=== PATIENT | male | born 1980 | race Hispanic/Latino ===

== ENCOUNTER 2018-11-25 20:33 | Inpatient (IN) | payer OTHER, SELFPAY ==
[~2018-11-25] VITALS: Ht 165.1 cm; Wt 93.6 kg
[2018-11-25 21:52] VITALS: BP 124/87
[2018-11-25 21:53] LABS: BASOPHIL % 0.1 % (0.0-0.2); EOSINOPHIL # 0.1 10^3/uL (0.0-0.2); EOSINOPHIL % 0.6 % (0.0-5.0); HEMOGLOBIN 15.4 g/dL (13.9-16.3); LYMPHOCYTES # 1.2 10^3/uL (1.0-4.8); LYMPHOCYTES % 9.8 % (24.0-44.0); MEAN CELL HGB 29.3 pg (26-34); MEAN CELL HGB CONCENTRATION 34.7 g/dL (33-37); MEAN CORP VOLUME 84.6 fL (78-100); MEAN PLATELET VOLUME 9.9 fL (7.8-11.0); MONOCYTES # 0.6 10^3/uL (0.3-0.8); MONOCYTES % 4.8 % (5.0-12.0); NEUTROPHIL # 10.6 10^3/uL (1.8-7.7); NEUTROPHILS % 84.5 % (41.0-85.0); RED CELL DISTRIBUTION WIDTH 13.1 % (11.5-14.5); WHITE BLOOD CELL 12.5 10^3/uL (4.5-11.0)
[2018-11-25 21:57] LABS: BILIRUBIN,URINE NEGATIVE (NEGATIVE); UROBILINOGEN,URINE NORMAL (NEGATIVE)
[2018-11-25 22:00] LABS: APPEARANCE,URINE CLEAR (CLEAR); UA COLOR YELLOW (YELLOW)
--- NOTE | 2018-11-25 22:02 | ER.PDOC ---
General Chief Complaint: Abdomen Pain Stated Complaint: ABD PAIN/VOMITING Time seen by MD: 21:57 Source: family (translating ) Exam Limitations: no limitations History of Present Illness Initial Comments diffuse abd pain, pt was seen at the clinic yesterday and started on bactrim for Sore throat , pt states he started taking the meds yesterday and its not working. pt also c/o Constipation and has not had a BM 2 days ago , no fever noted Timing/Duration: 4-6 hours, intermittent Radiation: no radiation Associated Symptoms: nausea/vomiting Exacerbated by: nothing Relieved By: nothing Allergies: Coded Allergies: No Known Allergies (Unverified , 11/25/18) Home Meds No Active Prescriptions or Reported Meds Vital Signs First Vital Signs Date Time Temp Pulse Resp B/P (MAP) Pulse Ox O2 Delivery O2 Flow Rate FiO2 11/25/18 20:52 98.6 87 16 96 Room Air 98.6 Last Vital Signs Date Time Temp Pulse Resp B/P (MAP) Pulse Ox O2 Delivery O2 Flow Rate FiO2 11/25/18 20:52 98.6 98.6 11/25/18 20:52 87 16 11/25/18 20:52 96 Room Air Past Medical History Medical History: no pertinent history Family History Significant Family History: no pertinent family hx Social History Smoking: non-smoker Alcohol Use: occassionally Drug Use: none Constitutional: no symptoms reported EENTM: no symptoms reported Respiratory: no symptoms reported Cardiovascular: no symptoms reported Gastrointestinal: abdominal pain, nausea, vomiting Genitourinary: no symptoms reported Musculoskeletal: no symptoms reported Skin: no symptoms reported Psychiatric/Neurological: no symptoms reported Endocrine: no symptoms reported Hematologic/Lymphatic: no symptoms reported Physical Exam General Appearance: No Apparent Distress, WD/WN HEENT: PERRL/EOMI, Normal ENT Inspection Neck: Non-Tender, Full Range of Motion, Supple Respiratory: chest non-tender, lungs clear, normal breath sounds, no respi ratory distress, no accessory muscle use Cardiovascular: Normal Peripheral Pulses, Regular Rate, Rhythm, No Edema Gastrointestinal: No Organomegaly, Hypoactive bowel sounds, Tenderness (epigastrium , no rebound no guarding noted ) Back: Normal Inspection Extremities: Normal Range of Motion, Non-Tender, Normal Inspection, No Pedal Edema 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 (11/25/18 21:41) Urinalysis (11/25/18 21:41) Xr Abd 2v (11/25/18 21:41) Urine Culture (11/25/18 20:44) Ct Abd/Pel With Iv Contrast (11/25/18 22:21) 0.9 % Sodium Chloride (Ns 1000ml) (11/25/18 22:30) 0.9 % Sodium Chloride (Ns 1000ml) (11/25/18 22:30) Ondansetron Hcl (Zofran) (11/25/18 23:10) 0.9 % Sodium Chloride (Ns 1000ml) (11/26/18 02:00) Routine Vital Signs (11/26/18 01:45) Npo-Dietary Req Nothing By Mo. (11/26/18 Breakfast) Intake & Output (11/26/18 01:45) Up Ad Liya/Low Risk Vte (11/26/18 01:45) Cbc With Auto Diff (11/27/18 05:00) Comprehensive Metabolic Panel (11/27/18 05:00) Ondansetron Hcl (Zofran) (11/26/18 02:00) Bedrest With Brp (11/26/18 01:45) Admit Orders (11/26/18 01:45) Vital Signs Date Time Temp Pulse Resp B/P (MAP) Pulse Ox O2 Delivery O2 Flow Rate FiO2 11/25/18 20:52 98.6 98.6 11/25/18 20:52 98.6 87 16 98.6 11/25/18 20:52 98.6 87 16 96 Room Air 98.6 Administered Medications Medications (Trade) Dose Ordered Sig/Mirian Route PRN Reason Start Time Stop Time Status Last Admin Dose Admin Sodium Chloride 1,000 ml @ 1,200 mls/hr Q50M STAT IV 11/25/18 22:30 11/25/18 23:19 DC 11/25/18 22:34 1,200 MLS/HR Laboratory Tests Test 11/25/18 20:44 11/25/18 21:48 Urine Collection Type VOID Urine Color YELLOW (YELLOW) Urine Appearance CLEAR (CLEAR) Urine Bilirubin NEGATIVE MG/DL (NEGATIVE) Urine Ketones NEGATIVE (NEGATIVE) Urine Specific [place] 1.015 (1.005-1.035) Urine pH 5 (5.0-6.0) Urine Protein 15 mg/dL (NEGATIVE) H Urine Urobilinogen NORMAL (NEGATIVE) Urine Nitrate NEGATIVE (NEGATAIVE) Urine Leukocyte Esterase NEGATIVE (NEGATIVE) Urine Blood 10 TR (NEGATIVE) H Urine RBC 0-2 RBC/HPF (NONE SEEN) Urine WBC 5-10 WBC/HPF (0-2) H Urine Squamous Epithelial Cells FEW #/HPF (FEW) Urine Bacteria RARE (NONE SEEN) Urine Hyaline Casts 0-1 (NONE SEEN) Urine Other FEW MUCUS #/HPF Urine Glucose NORMAL (NEGATIVE) White Blood Count 12.5 10^3/uL (4.5-11.0) H Red Blood Count 5.25 10^6/uL (4.50-5.90) Hemoglobin 15.4 g/dL (13.9-16.3) Hematocrit 44.4 % (37.0-53.0) Mean Corpuscular Volume 84.6 fL (78-100) Mean Corpuscular Hemoglobin 29.3 pg (26-34) Mean Corpuscular Hemoglobin Concent 34.7 g/dL (33-37) Red Cell Distribution Width 13.1 % (11.5-14.5) Platelet Count 316 10^3/uL (150-400) Mean Platelet Volume 9.9 fL (7.8-11.0) Neutrophils (%) (Auto) 84.5 % (41.0-85.0) Lymphocytes (%) (Auto) 9.8 % (24.0-44.0) L Monocytes (%) (Auto) 4.8 % (5.0-12.0) L Neutrophils # (Auto) 10.6 10^3/uL (1.8-7.7) H Lymphocytes # (Auto) 1.2 10^3/uL (1.0-4.8) Monocytes # (Auto) 0.6 10^3/uL (0.3-0.8) Absolute Immature Granulocyte (auto 0.03 10^3 u/L (0-2) Immature Granulocytes % 0.20 % (0.00-0.50) Eosinophils % 0.6 % (0.0-5.0) Basophils % 0.1 % (0.0-0.2) Basophils # 0.0 10^3/uL (0.0-0.1) Eosinophil Count 0.1 10^3/uL (0.0-0.2) Prothrombin Time 9.6 SEC (9.8-11.9) L Prothrombin Time INR (Non-Therap) 1.0 PTT 23.2 SEC (24.67-30.72) Sodium Level 140 mmol/L (132-145) Potassium Level 4.3 mmol/L (3.6-5.2) Chloride Level 100.0 mmol/L (96-109) Carbon Dioxide Level 26.0 mmol/L (20.0-32) Anion Gap 18.3 Blood Urea Nitrogen 13 mg/dL (7-18) Creatinine 1.22 mg/dL (0.59-1.40) Estimated GFR () 79.6 (>/=60) BUN/Creatinine Ratio 10.0 Glucose Level 138 mg/dL (70-110) H Calcium Level 9.9 mg/dL (8.4-10.5) Total Bilirubin 0.8 mg/dL (0.2-1.0) Aspartate Amino Transferase (AST) 47 U/L (0-35) H Alanine Aminotransferase (ALT) 84 U/L (12-78) H Alkaline Phosphatase 91 U/L (50-136) Total Protein 8.9 g/dL (6.4-8.2) H Albumin 4.4 g/dL (3.4-5.0) Globulin 4.5 Amylase Level 46 U/L (25-115) Lipase 126 U/L (114-286) Helicobacter pylori Screen NEGATIVE (NEGATIVE) Course Vitals & review Data Vital Sign - Last 24 Hours 11/25/18 11/25/18 11/25/18 20:52 20:52 20:52 Temp 98.6 98.6 98.6 98.6 98.6 98.6 Pulse 87 87 Resp 16 16 Pulse Ox 96 O2 Delivery Room Air Intake and Output 11/25/18 11/25/18 11/26/18 14:59 22:59 06:59 Output Total 150 ml Balance -150 ml Laboratory Tests Test 11/25/18 20:44 11/25/18 21:48 Urine Collection Type VOID Urine Color YELLOW Urine Appearance CLEAR Urine Bilirubin NEGATIVE MG/DL Urine Ketones NEGATIVE Urine Specific [place] 1.015 Urine pH 5 Urine Protein 15 mg/dL Urine Urobilinogen NORMAL Urine Nitrate NEGATIVE Urine Leukocyte Esterase NEGATIVE Urine Blood 10 TR Urine RBC 0-2 RBC/HPF Urine WBC 5-10 WBC/HPF Urine Squamous Epithelial Cells FEW #/HPF Urine Bacteria RARE Urine Hyaline Casts 0-1 Urine Other FEW MUCUS #/HPF Urine Glucose NORMAL White Blood Count 12.5 10^3/uL Red Blood Count 5.25 10^6/uL Hemoglobin 15.4 g/dL Hematocrit 44.4 % Mean Corpuscular Volume 84.6 fL Mean Corpuscular Hemoglobin 29.3 pg Mean Corpuscular Hemoglobin Concent 34.7 g/dL Red Cell Distribution Width 13.1 % Platelet Count 316 10^3/uL Mean Platelet Volume 9.9 fL Neutrophils (%) (Auto) 84.5 % Lymphocytes (%) (Auto) 9.8 % Monocytes (%) (Auto) 4.8 % Neutrophils # (Auto) 10.6 10^3/uL Lymphocytes # (Auto) 1.2 10^3/uL Monocytes # (Auto) 0.6 10^3/uL Absolute Immature Granulocyte (auto 0.03 10^3 u/L Immature Granulocytes % 0.20 % Eosinophils % 0.6 % Basophils % 0.1 % Basophils # 0.0 10^3/uL Eosinophil Count 0.1 10^3/uL Prothrombin Time 9.6 SEC Prothrombin Time INR (Non-Therap) 1.0 Activated Partial Thromboplast Time 23.2 SEC Sodium Level 140 mmol/L Potassium Level 4.3 mmol/L Chloride Level 100.0 mmol/L Carbon Dioxide Level 26.0 mmol/L Anion Gap 18.3 Blood Urea Nitrogen 13 mg/dL Creatinine 1.22 mg/dL Estimated GFR () 79.6 BUN/Creatinine Ratio 10.0 Glucose Level 138 mg/dL Calcium Level 9.9 mg/dL Total Bilirubin 0.8 mg/dL Aspartate Amino Transf (AST/SGOT) 47 U/L Alanine Aminotransferase (ALT/SGPT) 84 U/L Alkaline Phosphatase 91 U/L Total Protein 8.9 g/dL Albumin 4.4 g/dL Globulin 4.5 Amylase Level 46 U/L Lipase 126 U/L Helicobacter pylori Screen NEGATIVE Sepsis Infection Criteria Pres: None O2 Sat by Pulse Oximetry: 96 Departure Time of Disposition: 01:50 Disposition: 09 ADMITTED INPATIENT Impression: Primary Impression: Small bowel obstruction Condition: Stable Referrals: PCP,UNKNOWN (PCP) PRIMARY CARE PROVIDER Scripts No Active Prescriptions or Reported Meds Duration or Time Spent with Pa: 30 minutes BO LONDON MD Nov 25, 2018 22:02
--- NOTE | 2018-11-25 22:07 | DIREP ---
PROCEDURE:XR ABDOMEN 2 VIEWS COMPARISON:None. INDICATIONS:abd pain TECHNIQUE:Flat and upright views of the abdomen are provided. FINDINGS: BOWEL GAS PATTERN:Loops of air filled mildly dilated small bowel in the upper abdomen with differential air-fluid levels. Moderate amount of stool in the proximal ascending colon. Paucity of air in the distal colon and rectum. CALCIFICATIONS:None significant. LUNG BASES:Clear. BONES:Normal. OTHER:No additional findings. CONCLUSION:Findings consistent with to early/incomplete small obstruction, ileus or gastroenteritis. Dictated by: Grace Cole MD on 11/25/2018 at 10:04 PM
[2018-11-25 22:09] LABS: CALCIUM 9.9 mg/dL (8.4-10.5)
[2018-11-25] MEDS ORDERED: NS 1000ML 1,000 ML ONE (22:30)
[2018-11-25] MEDS ORDERED: NS 1000ML 1,000 ML IV STA (22:30)
[2018-11-25 22:52] VITALS: BP 131/85
[2018-11-25] MEDS ORDERED: ZOFRAN ONE (23:10)
[2018-11-25 23:52] VITALS: BP 145/65
[2018-11-26 00:50] VITALS: BP 135/82
--- NOTE | 2018-11-26 01:06 | DIREP ---
PROCEDURE:CT ABDOMEN/PELVIS W/ CONTRAST COMPARISON:[facility], CR, XRAY ABDOMEN 2VW, 11/25/2018, 09:26 PM. INDICATIONS:abd pain, eval for SBO TECHNIQUE:Axial images were created through the abdomen and pelvis with non-ionic intravenous contrast material. Oral contrast was administered however the patient immediately vomited the contrast. Sagittal and coronal reconstructions were performed from source images. FINDINGS: LUNG BASES:Normal. No visible pulmonary or pleural disease. LIVER:Hypodense parenchyma suggesting steatosis, Recalled density with the adjacent gallbladder bile BILIARY:Gallbladder contracted, no gallstones detected PANCREAS:Normal. No lesion, fluid collection, ductal dilatation, or atrophy. SPLEEN:Normal. No enlargement or focal lesion. ADRENALS:Normal. No mass or enlargement. URINARY TRACT:Normal. No focal lesions or hydronephrosis. AORTA/VASCULAR:Normal. No aneurysm. RETROPERITONEUM:Normal. No mass or adenopathy. BOWEL/MESENTERY:Dilated fluid-filled small bowel, some loops proximally exceeding 4 cm. No free fluid in the mesentery. There is fecalization of the small bowel contents in the right flank and a transition to normal caliber right flank, ventral to the right kidney, series 2/image 42 and series 53591/image 37. A lead point or mass is not demonstrated . The colon is unremarkable. The vermiform appendix, redundant, is identified in the right lower quadrant series 2/image 60. The stomach is distended and fluid-filled. ABDOMINAL WALL:Normal. No mass or hernia. PELVIC ORGANS:Normal. No visible mass. Pelvic organs appropriate for patient age. BONES:Normal for age. No bony lesion or acute fracture. OTHER:Negative. CONCLUSION:Dilated fluid-filled small bowel with transition zone consistent with small bowel obstruction. Normal appendix. Dictated by: Eze Huang MD on 11/26/2018 at 00:57 AM
[2018-11-26 01:50] VITALS: BP 124/90
[2018-11-26] MEDS ORDERED: ZOFRAN IV PRN (02:00)
[2018-11-26] MEDS ORDERED: NS 1000ML 1,000 ML IV ONE (02:00)
[2018-11-26] MEDS ORDERED: NS 1000ML 1,000 ML ONE (02:02)
--- NOTE | 2018-11-26 02:15 | NUR ---
NG TUBE OUTPUT 1800ML OUT TOTAL UPON LEAVING ED
--- NOTE | 2018-11-26 02:33 | DIREP ---
PROCEDURE:CHEST 1 VIEW COMPARISON:[facility], CT, CT ABD/PELVIS W/ CONTRAST, 11/26/2018, 00:22 AM. INDICATIONS:NG TUBE PLACEMENT FINDINGS: LUNGS/PLEURA:No consolidation. No pneumothorax. Incomplete inspiration VASCULATURE:Normal. Unremarkable pulmonary vasculature. CARDIAC:Normal. No cardiac silhouette abnormality or cardiomegaly. MEDIASTINUM:NG tube tip in the left upper quadrant, gastric bubble BONES:Normal. No fracture or visible bony lesion. OTHER:Negative. CONCLUSION:NG tube in the left upper quadrant of the abdomen Dictated by: Eze Huang MD on 11/26/2018 at 02:30 AM
[2018-11-26] MEDS ORDERED: LACTATED RINGERS 1,000 ML ONE ×2 (03:00)
[2018-11-26] MEDS ORDERED: LACTATED RINGERS 1,000 ML IV ONE (03:30)
[2018-11-26 03:42] VITALS: BP 128/81
[2018-11-26] MEDS ORDERED: LACTATED RINGERS 1,000 ML IV SCH (04:30)
[2018-11-26] MEDS ORDERED: MORPHINE SULFATE IV PRN (05:00)
[2018-11-26 05:26] LABS: HEMOGLOBIN 14.7 g/dL (13.9-16.3); MEAN CELL HGB 29.7 pg (26-34); MEAN CELL HGB CONCENTRATION 34.7 g/dL (33-37); MEAN CORP VOLUME 85.7 fL (78-100); MEAN PLATELET VOLUME 9.7 fL (7.8-11.0); RED CELL DISTRIBUTION WIDTH 13.2 % (11.5-14.5); WHITE BLOOD CELL 10.6 10^3/uL (4.5-11.0)
[2018-11-26 05:59] LABS: CALCIUM 9.4 mg/dL (8.4-10.5); CARBON DIOXIDE 27.3 mmol/L (20.0-32)
[2018-11-26 07:21] VITALS: BP 123/77
--- NOTE | 2018-11-26 08:00 | NUR ---
scd's placed bilateral calf scds on patient.
[2018-11-26] MEDS: NS 1000ML 1,000 ML IV SCH ×3 (08:05→23:18)
[2018-11-26] MEDS: PROTONIX IV IV SCH ×2 (08:49→21:28)
[2018-11-26] MEDS ORDERED: NEXIUM I.V. IV SCH (09:00)
--- NOTE | 2018-11-26 10:55 | NUR ---
ambulation patient ambulating in room. passed small amount of flatus. urge to use restroom but no bm. states he feels better.
--- NOTE | 2018-11-26 11:53 | NUR ---
ambulation patient ambulating in [place].
[2018-11-26 14:04] VITALS: BP 123/71
[2018-11-26] MEDS ORDERED: DULCOLAX EC TABLET PO STA (15:35)
--- NOTE | 2018-11-26 15:40 | NUR ---
BM patient had small mucousy bowel movement
[2018-11-26] MEDS ORDERED: ROCEPHIN ONE (15:48)
[2018-11-26] MEDS ORDERED: NS 100ML 100 ML IV ONE (15:49)
[2018-11-26] MEDS: ROCEPHIN 1,000 MG in NS 100ML 100 ML IV SCH (15:55)
--- NOTE | 2018-11-26 16:02 | HPH ---
ADMIT DATE: 11/26/2018 CHIEF COMPLAINT: Abdominal pain. HISTORY OF PRESENT ILLNESS: This is a 38-year-old male with no significant past medical history who presents to the Emergency Department with complaints of abdominal pain. He states this has been going on for the last 2-3 days with generalized abdominal pain, worse in the mid upper part of the abdomen with mild radiation to the left side of the abdomen. He has had nausea, but denies any vomiting. He also notes that he has been more constipated over the last 3 days and this is not something that he normally has a problem with. He denies any fever or other constitutional symptoms. He went to a small clinic in [place] prior to coming to the Emergency Department and states he was given some type of medication to take which did not give any improvement. Over the course of the evening, he started to have nausea with one episode of vomiting and his pain was continuing to worsen with abdominal distention. He then proceeded to the Emergency Department at that time. He does state that this happened to him one other time several years ago. He does not remember how it was treated, but he did not have to have any procedures. He denies ever having any abdominal or pelvic surgeries. PAST MEDICAL HISTORY: 1. Low back pain. 2. GERD. MEDICATIONS: None. ALLERGIES: No known drug allergies. PAST SURGICAL HISTORY: Denies. SOCIAL HISTORY: Alcohol -- social. Tobacco -- none. Recreational drugs -- none. The patient works at a Plant. FAMILY HISTORY: Denies any significant medical problems with family other than high blood pressure. REVIEW OF SYSTEMS: GENERAL: Positive for recent weakness and malaise over the last several days. No fever. CARDIAC: Denies chest pain, orthopnea, PND or palpitation. RESPIRATORY: Denies shortness of breath, cough or congestion. GASTROINTESTINAL: Positive for abdominal pain and nausea, vomiting. Positive constipation. No history of hepatitis. GENITOURINARY: Denies dysuria, frequency, hematuria or nocturia. HEMATOLOGIC: No easy bleeding or bruising. ENDOCRINE: No recent weight loss or weight gain. No temperature intolerance. NEUROLOGIC: Denies headache, paresthesias or dizziness. MUSCULOSKELETAL: No complaints of bones, muscles or joints. DERMATOLOGIC: No complaints of wounds, rashes or skin lesions. PSYCHIATRIC: Denies depression or anxiety complaints. OBJECTIVE: VITAL SIGNS: Temperature is 98.6, pulse 87, respirations 16, blood pressure 124/87. GENERAL: This is a well-appearing male in no acute distress. HEENT: Atraumatic, normocephalic. Sclerae are clear and anicteric. Oral mucosa is dry. NECK: Soft, supple, normal range of motion. No bruits, goiter, mass or adenopathy. There is no JVD. LUNGS: Clear to auscultation bilaterally. HEART: Regular rate and rhythm without murmurs, S3 or S4. ABDOMEN: Soft, distended, mild diffuse tenderness, worse in the left upper quadrant and left side of abdomen. Hypoactive bowel sounds. No masses felt. EXTREMITIES: Warm and well perfused without evidence of edema, cyanosis or clubbing. NEUROLOGIC: Cranial nerves 2-12 are grossly intact and symmetric. SKIN: Intact. LABORATORY DATA: WBC 12.5, hemoglobin 15.4, hematocrit 44.4, and platelets 316. Sodium 140, potassium 4.3, chloride 100, CO2 of 26, BUN 13, creatinine 1.22. Glucose 138. A1c 6.5. AST 47, ALT 84, total protein 8.9. Urinalysis -- 5-10 wbc's, rare bacteria. H. pylori screen -- negative. Abdominal x-ray -- "findings consistent with early/incomplete small obstruction, ileus or gastroenteritis." Chest x-ray - "NG tube in the left upper quadrant of the abdomen." CT abdomen and pelvis - "dilated fluid filled small bowel with transition zone consistent with small-bowel obstruction." ASSESSMENT: 1. Generalized abdominal pain. 2. Nausea, vomiting. 3. Partial small-bowel obstruction versus ileus. 4. Diabetes mellitus type 2 with hyperglycemia -- new diagnosis. 5. Gastroesophageal reflux disease. PLAN: 1. The patient is admitted to [facility] for further evaluation and management. 2. NG tube in place to low intermittent wall suction. 3. Consult Dr. Osvaldo Gupta for surgical evaluation. 4. Keep the patient n.p.o. with aggressive IV fluid resuscitation. 5. Start Accu-Cheks before meals and at bedtime with moderate sliding scale. 6. Increase activity. 7. Start proton pump inhibitor. 8. DVT prophylaxis. 9. Consider gastric emptying study as outpatient. Jatinder Wilder MD DR: SAJI/shelby JOB# [id number]
--- NOTE | 2018-11-26 19:00 | NUR ---
report received report from charge nurse
[2018-11-26 20:07] VITALS: BP 137/92
[2018-11-27 00:01] VITALS: BP 124/83
--- NOTE | 2018-11-27 02:01 | NUR ---
gastrografin administered
--- NOTE | 2018-11-27 02:11 | NUR ---
ambulating pt is ambulating in the hallway at this time.
[2018-11-27 04:39] VITALS: BP 133/90
[2018-11-27 05:35] LABS: BASOPHIL % 0.1 % (0.0-0.2); EOSINOPHIL # 0.1 10^3/uL (0.0-0.2); LYMPHOCYTES # 1.5 10^3/uL (1.0-4.8); LYMPHOCYTES % 14.8 % (24.0-44.0); MEAN CELL HGB 29.8 pg (26-34); MEAN CELL HGB CONCENTRATION 34.3 g/dL (33-37); MEAN CORP VOLUME 86.8 fL (78-100); MEAN PLATELET VOLUME 10.2 fL (7.8-11.0); MONOCYTES # 0.7 10^3/uL (0.3-0.8); NEUTROPHIL # 7.9 10^3/uL (1.8-7.7); NEUTROPHILS % 76.9 % (41.0-85.0); RED CELL DISTRIBUTION WIDTH 13.1 % (11.5-14.5); WHITE BLOOD CELL 10.3 10^3/uL (4.5-11.0)
[2018-11-27] MEDS: NS 1000ML 1,000 ML IV SCH ×2 (06:15→15:00)
--- NOTE | 2018-11-27 06:46 | NUR ---
REPORT RECEIVED REPORT, ASSUMED CARE FOR PATIENT AT THIS TIME.
[2018-11-27 06:55] LABS: CALCIUM 8.7 mg/dL (8.4-10.5); CARBON DIOXIDE 24.1 mmol/L (20.0-32)
--- NOTE | 2018-11-27 07:05 | NUR ---
RECEIVED ORDERS TO ADVANCE NG TUBE 3CM AT THIS TIME. AUSCULTATED FOR PATENCY, AND CONNECTED TO LOW INTERMITTENT SUCTION PER DOCTORS ORDERS.
--- NOTE | 2018-11-27 07:11 | DIREP ---
PROCEDURE:XR ABDOMEN 2 VIEWS COMPARISON:[facility], CR, XRAY ABDOMEN 2VW, 11/25/2018, 09:26 PM. INDICATIONS:Ileus TECHNIQUE:Flat and upright views of the abdomen are provided. FINDINGS: BOWEL GAS PATTERN:Multiple loops of air-filled mildly dilated organized small bowel in the abdomen. Paucity of air in the colon. Tip of NGT lies in the gastric fundus with the side hole at the esophagogastric junction and should be advanced. CALCIFICATIONS:None significant. LUNG BASES:Clear. BONES:Mild degenerative changes. OTHER:No additional findings. CONCLUSION: 1. Findings consistent with small-bowel obstruction. No perforation. 2. Advancement of NGT recommended. Dictated by: Grace Cole MD on 11/27/2018 at 07:06 AM
[2018-11-27 07:25] VITALS: BP 123/84
[2018-11-27] MEDS: PROTONIX IV IV SCH ×2 (08:45→21:50)
--- NOTE | 2018-11-27 09:28 | NUR ---
NG TUBE CLAMPED AT THIS TIME. PATIENT AMBULATING IN HALLWAY INDEPENDENTLY.
--- NOTE | 2018-11-27 09:52 | NUR ---
PATIENT CONNECTED TO LOW INTERMITTENT SUCTION AT THIS TIME.
--- NOTE | 2018-11-27 10:30 | NUR ---
DISCHARGE PLAN CM VISITED WITH PATIENT REGARDING D/C PLAN. HE LIVES AT HOME WITH HIS SPOUSE IN [place] AND IS INDEPENDENT OF ADLS. HE DOES NOT USE DME IN THE HOME AND DENIES THE NEED FOR ANY DME IN THE HOME. HE IS EMPLOYED F/T BY THE [employer]MENT IN [place]. HE DOES NOT HAVE A PCP AND A PROVIDER LIST WAS GIVEN FOR MAZIN. HE SAID HE IS FINANCIALLY ABLE TO PAY FOR MEDICATIONS. DISCHARGE GOAL IS FOR PATIENT TO DISCHARGE BACK HOME WITH HIS SPOUSE AND CONTINUE ROUTINE CARE THERE. CM WILL FOLLOW PT UNTIL DISCHARGE.
[2018-11-27 11:06] VITALS: BP 129/78
--- NOTE | 2018-11-27 11:39 | CNH ---
DATE OF CONSULTATION: Translation for this consultation provided by the language line service [employer] , ID number is [id number] CHIEF COMPLAINT: Small-bowel obstruction. HISTORY OF PRESENT ILLNESS: This is a 38-year-old male who apparently had 3 days of abdominal pain. He was in the fair amount of pain at home. He had multiple episodes of nausea and vomiting. He presented to the Emergency Department [facility], had labs and a CT scan that showed changes consistent with a bowel obstruction. NG tube was placed. He has been sent to the floor and has IV fluid hydration going. At the time of my repeat assessment today, he is noted to have abdominal pain 1-2, it is remarkably improved. He feels like his bowels are starting to rumble and he has no nausea with the NG tube in place. PAST MEDICAL HISTORY: Denies. PAST SURGICAL HISTORY: Includes skin grafts on the back. ALLERGIES: No known drug allergies. HOME MEDICATIONS: None. SOCIAL HISTORY: Negative for tobacco, it is positive for rare alcohol consumption, negative for illicit drug use. 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 FAMILY HISTORY: Mother at age 77 from some unknown cancer. Father is living at age 78, essentially healthy per patient report. REVIEW OF SYSTEMS: GENERAL: Positive for some seasonal allergies and cough. ENDOCRINE: He denies thyroid disease or diabetes. CARDIOVASCULAR: No chest pain or trouble breathing. PULMONARY: He denies any dyspnea at this time. MUSCULOSKELETAL: He héctor significant pain, stiffness, or swelling associated with joints or bones. He does have some muscular pain in the right lower leg. NEUROLOGIC: He denies any previous seizure or blackouts. PHYSICAL EXAMINATION: GENERAL: This is an alert, oriented, appropriate 38-year-old male who is in no acute distress. He is seen on multiple occasions. VITAL SIGNS: Last temperature is 98.3, pulse 72, respiratory rate 14, blood pressure 123/71. HEENT: Normocephalic, atraumatic. There was an NG tube in place. NECK: Supple and soft. Trachea is midline. No JVD or thyromegaly. HEART: Has regular rate and rhythm. LUNGS: Clear bilaterally. ABDOMEN: The bowel sounds are positive and they are increased this afternoon and over this a.m. He has minimal tenderness in the right side in the mid abdomen. EXTREMITIES: Show positive radial pulse bilaterally. Positive dorsal pedal pulse bilaterally. NEUROLOGIC: He has no acute findings. Cranial nerves 2-12 are grossly intact. SKIN AND INTEGUMENT: Warm and dry. LABORATORY STUDIES: After IV fluid hydration and NG tube decompression today, his white count is 10.6, hemoglobin 14.7, and platelet count is 293. Chemistry today shows BUN of 12, creatinine of 1.05. His hemoglobin A1c is 6.5. His transaminase levels are still elevated, but they are improved. TSH is 1.49. He has had an abdominal x-ray and a CT that shows changes consistent with partial versus complete small-bowel obstruction. He is noted to have some fecalization of small bowel contents on the CT scan. ASSESSMENT: 1. Partial versus complete small-bowel obstruction versus ileus. 2. Clinical dehydration. 3. Hyperglycemia. PLAN: 1. The patient is seen and examined. Chart is reviewed. 2. On discussion with the patient, it turns out that he has recently had a pharyngeal infection for which he is on p.o. meds , his has the meds, he is not sure what they are. 3. Based on the recent illness and the potential for this being dehydration related illness, we will continue conservative management with NG tube decompression and IV fluids. The patient has apparently had a bowel movement today. We will give him some Dulcolax for gentle catharsis, order Gastrografin through his NG tube tonight and plan for an x-ray in the morning. If, however, the contrast appears impeded in the small bowel at the area of fecalization, it is more likely that he does have an obstruction, he may require operative intervention. If it proves to pass, this will likely resolve nonoperatively. Osvaldo Gupta DO DR: DEBBIE/shelby JOB# [id number] CC: Jatinder Wilder MD MTDD
--- NOTE | 2018-11-27 11:45 | NUR ---
NG TUBE CLAMPED AT THIS TIME.
--- NOTE | 2018-11-27 11:46 | NUR ---
PATIENT AMBULATING INDEPENDENTLY IN HALLWAY AT THIS TIME.
--- NOTE | 2018-11-27 12:01 | PRM.PN ---
Subjective Subjective Date: Nov 27, 2018 Time: 11:56 Subjective Feeling a little better. Denies pain. No n/v. Some gas. Patient History: Patient reports no known family medical history. VTE VTE Risk Total Score: 0 VTE Risk Score VTE Risk: Score 0-1 = Low Risk (Aggressive mobilization; early ambulation; no VTE prophylaxis required) Score 2: Moderate Risk (Intermittent/Pneumatic Compression Device OR Lovenox/Heparin/Coumadin) Score 3-4: High Risk (Intermittent/Pneumatic Compression Device AND Lovenox/Heparin/Coumadin) Score > or =5: Highest Risk (Intermittent/Pneumatic Compression Device AND Lovenox/Heparin/Coumadin) Review of Systems Constitutional: No: Fever, Chills, Sweats, Weakness, Malaise, Other Respiratory: No: Cough, Dry, Shortness of breath, SOB with excertion, Wheezing, Hemoptysis, Pleuritic Pain, Sputum, Wheezing, Other Cardiovascular: No: Chest Pain, Palpitations, Orthopnea, Paroxysmal Noc. D yspnea, Edema, Lt Headedness, Other Gastrointestinal: No: Nausea, Vomiting, Abdominal Pain, Diarrhea, Constipation, Melena, Hematochezia, Other Genitourinary: No Dysuria, No Frequency, No Incontinence, No Hematuria, No Retention, No Other Neurological: No: Weakness, Numbness, Incoordination, Change in speech, Confusi on, Seizures, Other Allergies: Coded Allergies: No Known Allergies (Unverified , 11/25/18) No Active Prescriptions or Reported Meds Objective Vitals and I/O Vital Sign - Last 24 Hours 11/26/18 11/26/18 11/27/18 11/27/18 14:04 20:07 00:01 01:05 Temp 98.3 98.3 99.1 98.3 98.3 99.1 Pulse 72 76 79 Resp B/P (MAP) 123/71 (88) 137/92 (107) 124/83 (97) Pulse Ox 94 91 O2 Delivery Room Air Room Air Room Air Room Air 11/27/18 11/27/18 11/27/18 11/27/18 04:39 07:25 08:45 11:06 Temp 99.4 98.7 98.8 99.4 98.7 98.8 Pulse 81 76 77 Resp B/P (MAP) 133/90 (104) 123/84 (97) 129/78 (95) Pulse Ox 93 91 93 O2 Delivery Room Air Room Air Room Air Room Air Intake and Output 11/26/18 11/26/18 11/27/18 15:00 23:00 07:00 Intake Total 1000 ml Output Total 600 ml 300 ml Balance -600 ml 700 ml General: Alert, Oriented X3, Cooperative, No acute distress HEENT: Atraumatic, PERRLA Neck: Supple, No JVD Lungs: Clear to auscultation Heart: Regular rate, Normal S1, Normal S2, No murmurs Abdomen: Normal bowel sounds (Hypoactive bs), Soft, No tenderness, No masses Extremities: No clubbing, No cyanosis, No edema, Normal pulses, No tenderness/swelling Neuro: Normal gait, Normal speech, Strength at 5/5 X4 ext, Normal tone, Sensation intact All Results(Lab/Rad) Laboratory Tests Test 11/26/18 16:38 11/26/18 20:20 11/27/18 04:53 11/27/18 10:40 Bedside Glucose 116 110 106 White Blood Count 10.3 10^3/uL Red Blood Count 4.70 10^6/uL Hemoglobin 14.0 g/dL Hematocrit 40.8 % Mean Corpuscular Volume 86.8 fL Mean Corpuscular Hemoglobin 29.8 pg Mean Corpuscular Hemoglobin Concent 34.3 g/dL Red Cell Distribution Width 13.1 % Platelet Count 278 10^3/uL Mean Platelet Volume 10.2 fL Neutrophils (%) (Auto) 76.9 % Lymphocytes (%) (Auto) 14.8 % Monocytes (%) (Auto) 7.0 % Neutrophils # (Auto) 7.9 10^3/uL Lymphocytes # (Auto) 1.5 10^3/uL Monocytes # (Auto) 0.7 10^3/uL Absolute Immature Granulocyte (auto 0.02 10^3 u/L Immature Granulocytes % 0.20 % Eosinophils % 1.0 % Basophils % 0.1 % Basophils # 0.0 10^3/uL Eosinophil Count 0.1 10^3/uL Sodium Level 140 mmol/L Potassium Level 3.9 mmol/L Chloride Level 105.0 mmol/L Carbon Dioxide Level 24.1 mmol/L Anion Gap 14.8 Blood Urea Nitrogen 17 mg/dL Creatinine 0.95 mg/dL Estimated GFR () 106.2 BUN/Creatinine Ratio 17.0 Glucose Level 115 mg/dL Calcium Level 8.7 mg/dL Total Bilirubin 1.0 mg/dL Aspartate Amino Transf (AST/SGOT) 39 U/L Alanine Aminotransferase (ALT/SGPT) 75 U/L Alkaline Phosphatase 78 U/L Total Protein 7.4 g/dL Albumin 3.6 g/dL Globulin 3.8 Current Medications Medications (Trade) Dose Ordered Sig/Mirian Route PRN Reason Start Time Stop Time Status Last Admin Dose Admin Sodium Chloride 1,000 ml @ 1,200 mls/hr Q50M STAT IV 11/25/18 22:30 11/25/18 23:19 DC 11/25/18 22:34 Sodium Chloride 1,000 ml @ ud STK-MED ONCE .ROUTE 11/25/18 22:30 11/25/18 22:32 DC Ondansetron HCl (Zofran) 4 mg STK-MED ONCE .ROUTE 11/25/18 23:10 11/25/18 23:12 DC Sodium Chloride 1,000 ml @ 125 mls/hr OT ONCE IV 11/26/18 02:00 11/26/18 09:59 DC 11/26/18 02:03 Ondansetron HCl (Zofran) 4 mg Q4H PRN IV NAUSEA / VOMITING 11/26/18 02:00 12/26/18 01:59 Sodium Chloride 1,000 ml @ ud STK-MED ONCE .ROUTE 11/26/18 02:02 11/26/18 02:03 DC Esomeprazole Magnesium (Nexium I.v.) 40 mg BID IV 11/26/18 09:00 11/26/18 09:00 DC Morphine Sulfate (Morphine Sulfate) 4 mg Q4H PRN IV PAIN 4 - 6 11/26/18 05:00 12/26/18 04:59 Sodium Chloride 1,000 ml @ 125 mls/hr Q8H IV 11/26/18 07:00 12/26/18 06:59 11/27/18 06:15 Pantoprazole Sodium (Protonix Iv) 40 mg BID IV 11/26/18 09:00 12/26/18 08:59 11/27/18 08:45 Ceftriaxone Sodium 1000 mg/ Sodium Chloride 100 ml @ 100 mls/hr Q24HRS IV 11/26/18 15:00 12/26/18 14:59 11/26/18 15:55 Bisacodyl (Dulcolax Ec Tablet) 10 mg STAT STAT PO 11/26/18 15:35 11/26/18 16:15 DC 11/26/18 15:55 Ceftriaxone Sodium (Rocephin) 1,000 mg STK-MED ONCE .ROUTE 11/26/18 15:48 11/26/18 15:49 DC Sodium Chloride 100 ml @ ud STK-MED ONCE IV 11/26/18 15:49 11/26/18 15:50 DC Course Sepsis Screening Results: Posi: NEGATIVE Sepsis Qualifier/Stage: NO DEFINITE RISK Duration or Total Time Spent w: 30 minutes Vitals & review Data Vital Sign - Last 24 Hours 11/25/18 11/25/18 11/25/18 20:52 20:52 20:52 Temp 98.6 98.6 98.6 98.6 98.6 98.6 Pulse 87 87 Resp 16 16 Pulse Ox 96 O2 Delivery Room Air Intake and Output 11/25/18 11/25/18 11/26/18 14:59 22:59 06:59 Output Total 150 ml Balance -150 ml Laboratory Tests Test 11/25/18 20:44 11/25/18 21:48 Urine Collection Type VOID Urine Color YELLOW Urine Appearance CLEAR Urine Bilirubin NEGATIVE MG/DL Urine Ketones NEGATIVE Urine Specific [place] 1.015 Urine pH 5 Urine Protein 15 mg/dL Urine Urobilinogen NORMAL Urine Nitrate NEGATIVE Urine Leukocyte Esterase NEGATIVE Urine Blood 10 TR Urine RBC 0-2 RBC/HPF Urine WBC 5-10 WBC/HPF Urine Squamous Epithelial Cells FEW #/HPF Urine Bacteria RARE Urine Hyaline Casts 0-1 Urine Other FEW MUCUS #/HPF Urine Glucose NORMAL White Blood Count 12.5 10^3/uL Red Blood Count 5.25 10^6/uL Hemoglobin 15.4 g/dL Hematocrit 44.4 % Mean Corpuscular Volume 84.6 fL Mean Corpuscular Hemoglobin 29.3 pg Mean Corpuscular Hemoglobin Concent 34.7 g/dL Red Cell Distribution Width 13.1 % Platelet Count 316 10^3/uL Mean Platelet Volume 9.9 fL Neutrophils (%) (Auto) 84.5 % Lymphocytes (%) (Auto) 9.8 % Monocytes (%) (Auto) 4.8 % Neutrophils # (Auto) 10.6 10^3/uL Lymphocytes # (Auto) 1.2 10^3/uL Monocytes # (Auto) 0.6 10^3/uL Absolute Immature Granulocyte (auto 0.03 10^3 u/L Immature Granulocytes % 0.20 % Eosinophils % 0.6 % Basophils % 0.1 % Basophils # 0.0 10^3/uL Eosinophil Count 0.1 10^3/uL Prothrombin Time 9.6 SEC Prothrombin Time INR (Non-Therap) 1.0 Activated Partial Thromboplast Time 23.2 SEC Sodium Level 140 mmol/L Potassium Level 4.3 mmol/L Chloride Level 100.0 mmol/L Carbon Dioxide Level 26.0 mmol/L Anion Gap 18.3 Blood Urea Nitrogen 13 mg/dL Creatinine 1.22 mg/dL Estimated GFR () 79.6 BUN/Creatinine Ratio 10.0 Glucose Level 138 mg/dL Calcium Level 9.9 mg/dL Total Bilirubin 0.8 mg/dL Aspartate Amino Transf (AST/SGOT) 47 U/L Alanine Aminotransferase (ALT/SGPT) 84 U/L Alkaline Phosphatase 91 U/L Total Protein 8.9 g/dL Albumin 4.4 g/dL Globulin 4.5 Amylase Level 46 U/L Lipase 126 U/L Helicobacter pylori Screen NEGATIVE Sepsis Infection Criteria Pres: Suspected Infection LEVEL 1 SEPSIS INFECTION CRITE: Abdominal Pain LEVEL 2-SIRS (LIST ALL THAT AP: None/Not assessed Cardiovascular Evidence: Not Assessed or None Hematologic Evidence: None/Not assessed Hepatic Evidence: None/Not assessed Metabolic Evidence: None/Not assessed Neurological Evidence: None/Not assessed Respiratory Evidence: None/Not assessed Renal Evidence: None/Not assessed O2 Sat by Pulse Oximetry: 93 Assessment/Plan Assessment/Plan Assessment/Plan 1. Generalized abdominal pain - Secondary to partial obstruction. Pain much improved. 2. Nausea, vomiting - NGT in place. 700 cc out since last night. 3. Partial small-bowel obstruction versus ileus - Still not many bowel sounds. - Continue increase ambulation. - NGT. - Appreciate Dr. Gupta following. 4. Diabetes mellitus type 2 with hyperglycemia -- new diagnosis. - Continue to monitor accu checks for now. 5. Gastroesophageal reflux disease - Continue ppi. ALFREDA RANKIN MD Nov 27, 2018 12:01
[2018-11-27 12:45] LABS: CALCIUM 9.1 mg/dL (8.4-10.5); CARBON DIOXIDE 25.9 mmol/L (20.0-32)
--- NOTE | 2018-11-27 13:00 | NUR ---
CONNECTED NG TUBE TO LOW INTERMITTENT SUCTION AT THIS TIME.
--- NOTE | 2018-11-27 14:30 | NUR ---
PATIENT AMBULATING INDEPENDENTLY IN HALLWAY AT THIS TIME.
[2018-11-27] MEDS: ROCEPHIN 1,000 MG in NS 100ML 100 ML IV SCH (15:50)
[2018-11-27 16:05] VITALS: BP 139/97
--- NOTE | 2018-11-27 17:00 | DIREP ---
PROCEDURE:XR ABDOMEN 2 VIEWS COMPARISON:[facility], [place], XRAY ABDOMEN 2VW, 11/27/2018, 06:03 AM. INDICATIONS:Ileus TECHNIQUE:Flat and upright views of the abdomen are provided. FINDINGS: BOWEL GAS PATTERN:Few mildly dilated gas-filled loops of small bowel centrally throughout the abdomen with suggestion of possible fold or wall thickening. Findings could represent enteritis but ileus or early obstruction cannot be entirely excluded. Small amount of gas is also present throughout the colon. No significant air-fluid levels are appreciated. CALCIFICATIONS:None significant. LUNG BASES:Clear. BONES:Normal. OTHER:Nasogastric tube is coiled in the region of the stomach. CONCLUSION: 1. Few mildly dilated loops of small bowel centrally throughout the abdomen with suggestion of possible mild folder wall thickening. Question enteritis with localized ileus but early obstruction cannot be entirely excluded. Dictated by: Oracio Cardona MD on 11/27/2018 at 04:52 PM
--- NOTE | 2018-11-27 18:30 | NUR ---
REPORT RECEIVED REPORT FROM DAVONTE HERNANDEZ, ASSUMED CARE FOR PATIENT AT THIS TIME.
--- NOTE | 2018-11-27 19:30 | NUR ---
AMBULATION PATIENT AMBULATING IN HALLWAY
[2018-11-27 19:38] VITALS: BP 139/97
--- NOTE | 2018-11-27 21:15 | NUR ---
AMBULATION PATIENT AMBULATING IN HALLWAY
--- NOTE | 2018-11-27 23:00 | NUR ---
AMBULATION PATIENT AMBULATING IN HALLWAY. @ 2230 REPORTS HIS STOMACH FEELS FULL. PATIENT RETURNED TO ROOM. ABDOMEN IS FIRM, DISTENDED, NONTENDER, BOWEL SOUNDS X4. PATIENT REPORTS NO NAUSEA AT THIS TIME. DISCUSSED WITH PATIENT HE MAY NEED TO PASS FLATUS AND IT MIGHT HELP IF HE ALTERNATED LAYING ON RIGHT SIDE THEN LEFT SIDE. AT 2300 PATIENT STATED "LAYING IN DIFFERENT POSITIONS WORKED. I PASSED GAS AND MY STOMACH FEELS BETTER."
--- NOTE | 2018-11-28 00:11 | PNH ---
DATE: 11/27/2018 SUBJECTIVE: A 38-year-old male in no acute distress. He is seen ambulating in the hallways and again in his room. He reports he feels better, has less distention. His abdominal pain is improved. OBJECTIVE: VITAL SIGNS: Last temperature 98.8, pulse 77, respiratory rate of 19, blood pressure 129/78. ABDOMEN: Bowel sounds are positive and soft. He has no significant tenderness on exam. He has minimal distention. LABORATORY DATA: Today show white count 10.3, hemoglobin 14.0, platelet count 278,000. Chemistry shows BUN of 18, creatinine 0.87. His total bilirubin is 1.2, AST is 42, ALT is 80. DIAGNOSTIC STUDIES: His x-ray does show essentially no improvement over previous, although he did tolerate the contrast that was given. However, since the x-ray, he has improved clinically. ASSESSMENT: 1. Ileus versus partial small-bowel obstruction. 2. Apparent new-onset diabetes. PLAN: The patient is seen and examined. Chart was reviewed. Clinically, the patient is doing much better. I have ordered repeat x-ray. Depending on the findings, he is to continue NG tube suction. If he does not improve by tomorrow, he may require operative intervention. However, if his radiographic studies improve consistent with his clinical status, he will likely have his NG tube clamped and be started on clears. Continue ambulating. The patient has been doing an excellent job, compliant with this instruction. Osvaldo Gupta DO DR: DEBBIE/shelby JOB# [id number] CC: Jatinder Wilder MD
[2018-11-28 00:33] VITALS: BP 134/86
[2018-11-28] MEDS: NS 1000ML 1,000 ML IV SCH ×2 (00:33→09:34)
[2018-11-28 04:39] VITALS: BP 130/81
[2018-11-28 07:29] VITALS: BP 134/90
--- NOTE | 2018-11-28 07:37 | NUR ---
Report Report received from Glory HERNANDEZ at shift change. Physician DR. Gupta called and ordered removal of NGT. This RN removed NGT as ordered. Well Tolerated by Patient. Tip and Tube intact upon Removal. Suction Canister removed and Gel added for solidification. Canister and Tube disposed of in Red bag.
[2018-11-28] MEDS: PROTONIX IV IV SCH (09:34)
[2018-11-28 12:22] VITALS: BP 138/94
[2018-11-28] MEDS ORDERED: ONDA2VIA2 PO (13:32)
--- NOTE | 2018-11-28 13:45 | PRM.DC ---
Discharge Summary Date of Discharge: Nov 28, 2018 Time of Request to Discharge: 13:30 Reason for Visit: abdominal pain, nausea, vomiting Hospital Course Patient admitted with abdominal pain, nausea, and vomiting. Patient found to have partial SBO v. Ileus. Patient made NPO and required NGT for symptoms. Patient treated with IVF and IV antiemetics. Surgery was consulted. Patient had serial abdominal imaging/evaluation. Patient had NGT d/c and diet advanced slowly. He was able to tolerate regular diet. His pain, nausea had completely resolved. Patient was cleared by surgery for d/c to home on bland diet. Patient was found to be diabetic during hospitalization. Patient will f/u with Surgery/PCP within 1-2 weeks. Patient can discuss chronic treatment for diabetes after GI symptoms are improved. Patient History: Patient reports no known family medical history. General: Alert, Oriented X3, Cooperative HEENT: Atraumatic, PERRLA, EOMI Neck: Supple, No JVD Lungs: Clear to auscultation, Normal air movement Heart: Regular rate, Normal S1, Normal S2, No murmurs Abdomen: Normal bowel sounds, Soft, No tenderness Extremities: No edema, Normal pulses, No tenderness/swelling Skin: No rashes, No breakdown, No significant lesion Neuro: Normal gait, Normal speech, Strength at 5/5 X4 ext, Normal tone, Sensation intact, Cranial nerves 3-12 NL Psych/Mental Status: Mental status NL, Mood NL Scheduled PRN Ondansetron Hcl (Ondansetron Hcl), 4 MG PO TIDAC PRN for NAUSEA / VOMITING Sepsis Evaluation @ Discharge Vital Sign - Last 24 Hours 11/25/18 11/25/18 11/25/18 20:52 20:52 20:52 Temp 98.6 98.6 98.6 98.6 98.6 98.6 Pulse 87 87 Resp 16 16 Pulse Ox 96 O2 Delivery Room Air Intake and Output 11/25/18 11/25/18 11/26/18 14:59 22:59 06:59 Output Total 150 ml Balance -150 ml Laboratory Tests Test 11/25/18 20:44 11/25/18 21:48 Urine Collection Type VOID Urine Color YELLOW Urine Appearance CLEAR Urine Bilirubin NEGATIVE MG/DL Urine Ketones NEGATIVE Urine Specific [place] 1.015 Urine pH 5 Urine Protein 15 mg/dL Urine Urobilinogen NORMAL Urine Nitrate NEGATIVE Urine Leukocyte Esterase NEGATIVE Urine Blood 10 TR Urine RBC 0-2 RBC/HPF Urine WBC 5-10 WBC/HPF Urine Squamous Epithelial Cells FEW #/HPF Urine Bacteria RARE Urine Hyaline Casts 0-1 Urine Other FEW MUCUS #/HPF Urine Glucose NORMAL White Blood Count 12.5 10^3/uL Red Blood Count 5.25 10^6/uL Hemoglobin 15.4 g/dL Hematocrit 44.4 % Mean Corpuscular Volume 84.6 fL Mean Corpuscular Hemoglobin 29.3 pg Mean Corpuscular Hemoglobin Concent 34.7 g/dL Red Cell Distribution Width 13.1 % Platelet Count 316 10^3/uL Mean Platelet Volume 9.9 fL Neutrophils (%) (Auto) 84.5 % Lymphocytes (%) (Auto) 9.8 % Monocytes (%) (Auto) 4.8 % Neutrophils # (Auto) 10.6 10^3/uL Lymphocytes # (Auto) 1.2 10^3/uL Monocytes # (Auto) 0.6 10^3/uL Absolute Immature Granulocyte (auto 0.03 10^3 u/L Immature Granulocytes % 0.20 % Eosinophils % 0.6 % Basophils % 0.1 % Basophils # 0.0 10^3/uL Eosinophil Count 0.1 10^3/uL Prothrombin Time 9.6 SEC Prothrombin Time INR (Non-Therap) 1.0 Activated Partial Thromboplast Time 23.2 SEC Sodium Level 140 mmol/L Potassium Level 4.3 mmol/L Chloride Level 100.0 mmol/L Carbon Dioxide Level 26.0 mmol/L Anion Gap 18.3 Blood Urea Nitrogen 13 mg/dL Creatinine 1.22 mg/dL Estimated GFR () 79.6 BUN/Creatinine Ratio 10.0 Glucose Level 138 mg/dL Calcium Level 9.9 mg/dL Total Bilirubin 0.8 mg/dL Aspartate Amino Transf (AST/SGOT) 47 U/L Alanine Aminotransferase (ALT/SGPT) 84 U/L Alkaline Phosphatase 91 U/L Total Protein 8.9 g/dL Albumin 4.4 g/dL Globulin 4.5 Amylase Level 46 U/L Lipase 126 U/L Helicobacter pylori Screen NEGATIVE Course Sepsis Screening Results: Posi: NEGATIVE Sepsis Qualifier/Stage: NO DEFINITE RISK Duration or Total Time Spent w: 30 minutes Vitals & review Data Vital Sign - Last 24 Hours 11/25/18 11/25/18 11/25/18 20:52 20:52 20:52 Temp 98.6 98.6 98.6 98.6 98.6 98.6 Pulse 87 87 Resp 16 16 Pulse Ox 96 O2 Delivery Room Air Intake and Output 11/25/18 11/25/18 11/26/18 14:59 22:59 06:59 Output Total 150 ml Balance -150 ml Laboratory Tests Test 11/25/18 20:44 11/25/18 21:48 Urine Collection Type VOID Urine Color YELLOW Urine Appearance CLEAR Urine Bilirubin NEGATIVE MG/DL Urine Ketones NEGATIVE Urine Specific [place] 1.015 Urine pH 5 Urine Protein 15 mg/dL Urine Urobilinogen NORMAL Urine Nitrate NEGATIVE Urine Leukocyte Esterase NEGATIVE Urine Blood 10 TR Urine RBC 0-2 RBC/HPF Urine WBC 5-10 WBC/HPF Urine Squamous Epithelial Cells FEW #/HPF Urine Bacteria RARE Urine Hyaline Casts 0-1 Urine Other FEW MUCUS #/HPF Urine Glucose NORMAL White Blood Count 12.5 10^3/uL Red Blood Count 5.25 10^6/uL Hemoglobin 15.4 g/dL Hematocrit 44.4 % Mean Corpuscular Volume 84.6 fL Mean Corpuscular Hemoglobin 29.3 pg Mean Corpuscular Hemoglobin Concent 34.7 g/dL Red Cell Distribution Width 13.1 % Platelet Count 316 10^3/uL Mean Platelet Volume 9.9 fL Neutrophils (%) (Auto) 84.5 % Lymphocytes (%) (Auto) 9.8 % Monocytes (%) (Auto) 4.8 % Neutrophils # (Auto) 10.6 10^3/uL Lymphocytes # (Auto) 1.2 10^3/uL Monocytes # (Auto) 0.6 10^3/uL Absolute Immature Granulocyte (auto 0.03 10^3 u/L Immature Granulocytes % 0.20 % Eosinophils % 0.6 % Basophils % 0.1 % Basophils # 0.0 10^3/uL Eosinophil Count 0.1 10^3/uL Prothrombin Time 9.6 SEC Prothrombin Time INR (Non-Therap) 1.0 Activated Partial Thromboplast Time 23.2 SEC Sodium Level 140 mmol/L Potassium Level 4.3 mmol/L Chloride Level 100.0 mmol/L Carbon Dioxide Level 26.0 mmol/L Anion Gap 18.3 Blood Urea Nitrogen 13 mg/dL Creatinine 1.22 mg/dL Estimated GFR () 79.6 BUN/Creatinine Ratio 10.0 Glucose Level 138 mg/dL Calcium Level 9.9 mg/dL Total Bilirubin 0.8 mg/dL Aspartate Amino Transf (AST/SGOT) 47 U/L Alanine Aminotransferase (ALT/SGPT) 84 U/L Alkaline Phosphatase 91 U/L Total Protein 8.9 g/dL Albumin 4.4 g/dL Globulin 4.5 Amylase Level 46 U/L Lipase 126 U/L Helicobacter pylori Screen NEGATIVE Sepsis Infection Criteria Pres: Suspected Infection LEVEL 1 SEPSIS INFECTION CRITE: None/Not assessed LEVEL 2-SIRS (LIST ALL THAT AP: None/Not assessed Cardiovascular Evidence: Not Assessed or None Hematologic Evidence: None/Not assessed Hepatic Evidence: None/Not assessed Metabolic Evidence: NewSerumGluc>140abs diab Neurological Evidence: None/Not assessed Respiratory Evidence: None/Not assessed Renal Evidence: None/Not assessed O2 Sat by Pulse Oximetry: 93 Plan Discharge Date: Nov 28, 2018 Dicharge DX: Abdominal pain, intractable nausea/vomiting, partial SBO v. Ileus Discharge Disposition: Stable Plan ok to d/c to home self care medications: per med rec list Diet: bland Activity: as tolerated F/U with Surgery/PCP within 1-2 weeks Return to care for worsening/concerning symptoms ARMOND CABAN MD Nov 28, 2018 13:45
--- NOTE | 2018-11-28 13:52 | NUR ---
IV D/C PT IV. CATHETER TIP INTACT. NO VISIBLE REDNESS OR SWELLING. WRAPPED WITH COBAN AND COTTON BALL. INSTRUCTED PT TO LEAVE IN PLACE FOR 20 MINUTES. PT VERBALIZED UNDERSTANDING.
[2018-11-28 15:00] VITALS: BP 138/94
--- NOTE | 2018-11-28 17:27 | NUR ---
Discharge Patient discharged home with his . Discharge teaching provided using translation line, for [place]. Patient strongly encouraged to hydrate at home and during the day, by this RN and Dr. Gupat. IV access removed, catheter intact. Patient follow up appointment made with Dr. Gupta. Patient stated he does not have a PCP. Patient ambulated to the exit, taking all of his belongings.
== END 2018-11-28 14:21 | disposition home or self-care (01) | DRG 390 ==
LOC: ER 20:33 → MS 11-26 01:45 → EDPENDDISDT 11-28 02:15 → EDPENDDISTM 11-28 15:00
PROVIDERS: ADMIT Internal Medicine; ATTEND Internal Medicine
PROC: 0D9670Z Drainage of Stomach with Drainage Device, Via Natural or Artificial Opening (ICD-10-PCS; principal; 2018-11-26)
DX: K56.600 Partial intestinal obstruction, unspecified as to cause (principal); K56.7 Ileus, unspecified; E11.65 Type 2 diabetes mellitus with hyperglycemia; K21.9 Gastro-esophageal reflux disease without esophagitis; E86.0 Dehydration; Z79.899 Other long term (current) drug therapy
CPT/HCPCS: 36415; 71045; 74019; 74177; 80053; 81000; 82150; 82948; 83036; 83690; 84443; 85025; 85027; 85610; 85730; 86677; 87086; 96360; 99285; C9113; G0378; J0696; J2405; J7030; J7050; J7120; Q9963; Q9965